=== PATIENT | male | born 1980 | race Two or more races ===

== ENCOUNTER 2023-09-28 09:15 | Inpatient (IN) | payer BC ==
[~2023-09-28] VITALS: Ht 180.3 cm; Wt 92.1 kg
[2023-09-28 10:52] LABS: HEMATOCRIT 47.3 % (39.0-48.0); HEMOGLOBIN 16.2 g/dL (13-16.00); MEAN CORPUSCULAR HEMOGLOBIN 29.7 pg (27.00-32.0); MEAN CORPUSCULAR HGB CONC 34.1 g/dl (32.0-36.0); PLATELET COUNT 214 K/uL (150-450); RED BLOOD COUNT 5.44 M/uL (4.00-6.00); RED CELL DISTRIBUTION WIDTH 13.7 % (11.5-14.5)
[2023-09-28 11:11] LABS: ALBUMIN 4.2 gm/dL (3.4-5.0); BILIRUBIN TOTAL 1.17 mg/dL (0.3-1.2); CREATININE SERUM 1.11 mg/dL (0.70-1.30); GFR 72.3; GLOBULINA 4.8 G/DL (2.4-3.5); POTASSIUM 3.8 mEq/L (3.5-5.1)
[2023-09-28 21:42] LABS: INR 1.06; PARTIAL THROMBOPLASTIN TIME 32.8 SECONDS (22.0-34.0); PROTHROMBIN TIME 11.1 SECONDS (9.0-11.5)
[2023-09-28 21:46] LABS: URINE APPEARANCE Clear; URINE BILIRRUBIN Small (NEGATIVE); URINE BLOOD Negative; URINE COLOR Dark Yellow; URINE GLUCOSE Negative (NEGATIVE); URINE LEUKOCYTE Trace; URINE NITRATE Negative; URINE PROTEIN 30 (NEGATIVE)
[2023-09-28 21:49] LABS: URINE BACTERIA 8.8 uL (0.0-1933); URINE RBC 10.3 uL (0.0-20.8); URINE WBC 13.1 uL (0.0-23.2)
[2023-09-28 22:39] LABS: ABG PH 7.472 (7.35-7.45); ABG PO2 80.3 mmHg (80-100); ABG pCO2 34.7 mmHg (35-45); BASE EXCESS 1.7 mmol/l; BICARBONATE 24.8 mmol/l (23-25); SaO2 96.6 %; Tco2 25.9 mmol/l; allen test SATISFACTORY; puncture site RADIAL LEFT
[2023-09-28 22:40] LABS: o2 28 %
[2023-09-29 06:52] LABS: HEMATOCRIT 41.8 % (39.0-48.0); MEAN CELL VOLUME 88.9 fL (80.0-100.00); MEAN CORPUSCULAR HEMOGLOBIN 29.9 pg (27.00-32.0); MEAN CORPUSCULAR HGB CONC 33.6 g/dl (32.0-36.0); PLATELET COUNT 177 K/uL (150-450); RED CELL DISTRIBUTION WIDTH 13.6 % (11.5-14.5)
[2023-09-29 11:48] LABS: ABG PH 7.461 (7.35-7.45); ABG PO2 74.2 mmHg (80-100); ABG pCO2 35.2 mmHg (35-45); BASE EXCESS 1.2 mmol/l; BICARBONATE 24.5 mmol/l (23-25); SaO2 95.6 %; Tco2 25.6 mmol/l; allen test SATISFACTORY; o2 32 %; puncture site RADIAL RIGHT
[2023-09-30 11:12] LABS: COCAINE NEGATIVE (NEGATIVE); METHADONE NEGATIVE (NEGATIVE); OPIATES NEGATIVE (NEGATIVE); THC ( Cannabinoids) NEGATIVE (NEGATIVE)
[2023-10-01 06:45] LABS: HEMATOCRIT 43.7 % (39.0-48.0); HEMOGLOBIN 14.7 g/dL (13-16.00); MEAN CELL VOLUME 87.7 fL (80.0-100.00); MEAN CORPUSCULAR HEMOGLOBIN 29.5 pg (27.00-32.0); MEAN CORPUSCULAR HGB CONC 33.6 g/dl (32.0-36.0); PLATELET COUNT 215 K/uL (150-450); RED BLOOD COUNT 4.98 M/uL (4.00-6.00); RED CELL DISTRIBUTION WIDTH 13.7 % (11.5-14.5)
[2023-10-01 06:58] LABS: CALCIUM 9.1 mg/dL (8.5-10.1); CREATININE SERUM 0.88 mg/dL (0.70-1.30); GFR 94.52; POTASSIUM 4.18 mEq/L (3.5-5.1)
[2023-10-02 06:58] LABS: HEMATOCRIT 42.1 % (39.0-48.0); HEMOGLOBIN 14.4 g/dL (13-16.00); MEAN CELL VOLUME 90.1 fL (80.0-100.00); MEAN CORPUSCULAR HEMOGLOBIN 30.7 pg (27.00-32.0); MEAN CORPUSCULAR HGB CONC 34.1 g/dl (32.0-36.0); PLATELET COUNT 219 K/uL (150-450); RED BLOOD COUNT 4.67 M/uL (4.00-6.00); RED CELL DISTRIBUTION WIDTH 13.6 % (11.5-14.5)
== END 2023-10-02 16:08 | disposition home or self-care (01) | DRG 315 ==
LOC: ER 09:16 → ICU-2 23:35 → SEC-K 09-30 16:28 → MEDJ 09-30 16:31
PROVIDERS: General Practice; ADMIT Internal Medicine; ATTEND Internal Medicine
PROC: BB24Y0Z Computerized Tomography (CT Scan) of Bilateral Lungs using Other Contrast, Unenhanced and Enhanced (ICD-10-PCS; principal; 2023-09-28)
PROC: B246ZZZ Ultrasonography of Right and Left Heart (ICD-10-PCS; 2023-09-28)
PROC: 4A12X4Z Monitoring of Cardiac Electrical Activity, External Approach (ICD-10-PCS; 2023-10-01)
DX: I31.39 Other pericardial effusion (noninflammatory) (principal); R65.10 Systemic inflammatory response syndrome (SIRS) of non-infectious origin without acute organ dysfunction; D72.828 Other elevated white blood cell count